=== PATIENT | male | born 1965 | race Caucasian/White ===

== ENCOUNTER 2016-08-01 08:01 | Day surgery (SDC) | payer OTHER ==
[~2016-08-01] VITALS: Ht 172.7 cm; Wt 80.7 kg
[2016-08-01] VITALS (17 sets, daily range): BP systolic 115–165; BP diastolic 58–95; PULSE 66–74; RESP 14–21; Ht 172.7 cm; Wt 80.7 kg
[2016-08-01] MEDS ORDERED: SIMV20TA PO (08:25)
[2016-08-01] MEDS ORDERED: ASPI-664 PO (08:25)
[2016-08-01] MEDS ORDERED: TRIA1CAP PO (08:26)
[2016-08-01] MEDS ORDERED: MIDAZOLAM 1 MG/ML 2 ML INJ ONE (09:47)
[2016-08-01] MEDS ORDERED: LIDOCAINE 2% (SDV) 5 ML INJ ONE (09:47)
[2016-08-01] MEDS ORDERED: SUCCINYLCHOLINE CHLORIDE 100 MG/5 ML SYG IV ONE (09:47)
[2016-08-01] MEDS ORDERED: FENTAnyl 50 MCG/ML VIAL ONE (09:47)
[2016-08-01] MEDS ORDERED: PROPOFOL 20 ML ONE (09:47)
--- NOTE | 2016-08-01 10:02 | HPN ---
Date/Time of Note Date/Time of Note DATE: 08/01/16 TIME: 10:01 Interval H&P Admission Note Pt. seen H&P reviewed: No system changes KALIN MAURICE M.D. Aug 01, 2016 10:02
[2016-08-01] MEDS ORDERED: COCAINE 4% 4 ML TOP ONE (10:34)
[2016-08-01] MEDS ORDERED: BACITRACIN/POLYMYXIN 28.35 GM OINT TOP ONE (10:34)
[2016-08-01] MEDS ORDERED: LIDOCAINE 1%/EPI (MDV) 20 ML INJ ONE ×2 (10:34→11:15)
[2016-08-01] MEDS ORDERED: ONDANSETRON 4 MG INJ ONE (11:11)
[2016-08-01] MEDS ORDERED: DEXAMETHASONE 4 MG/ML 1 ML INJ ONE (11:11)
[2016-08-01] MEDS ORDERED: CEFAZOLIN 1 GM INJ ONE (11:12)
[2016-08-01] MEDS ORDERED: MEPERIDINE 25 MG INJ IV PRN (11:30)
[2016-08-01] MEDS ORDERED: PROCHLORPERAZINE 10 MG INJ IV PRN (11:30)
[2016-08-01] MEDS ORDERED: FENTAnyl 50 MCG/ML VIAL IV PRN (11:30)
[2016-08-01] MEDS ORDERED: OXYCODONE/ACETAMINOPHEN (5/325) TAB PO PRN ×2 (11:30)
[2016-08-01] MEDS ORDERED: DIPHENHYDRAMINE 50 MG INJ IV PRN (11:30)
[2016-08-01] MEDS ORDERED: METOCLOPRAMIDE 10 MG INJ IV PRN (11:30)
[2016-08-01] MEDS ORDERED: ONDANSETRON 4 MG INJ IV PRN (11:30)
[2016-08-01] MEDS ORDERED: HYDROmorphONE (0.2 MG/ML) 10ML SYG IV PRN ×2 (11:30)
--- NOTE | 2016-08-01 11:44 | PDOCDIS ---
Discharge Instructions DIAGNOSIS Discharge Diagnosis: CHRONIC NASAL OBSTRUCTION. CONDITION Patient Condition: Good HOME CARE INSTRUCTIONS: Diet Instructions: Regular ACTIVITY: Activity Restrictions: Slowly Increase Activity Rest between Activity Avoid heavy lifting Avoid Heavy Housework Bathing Restrictions: Tub Bath FOLLOW UP/APPOINTMENTS Appointments [facility] 08-08-2016 AT 4:30 PM. SCHOOL/WORK RELEASE May return to School/Work on: Aug 09, 2016 May return to School/Work with: No Restrictions KALIN MAURICE M.D. Aug 01, 2016 11:44
--- NOTE | 2016-08-01 14:03 | OPR ---
DATE OF OPERATION: 08/01/2016 SURGEON: Marcell Clements MD PREOPERATIVE DIAGNOSES: 1. Chronic nasal obstruction. 2. Bilateral turbinate tissue hypertrophy. 3. Allergic rhinitis. POSTOPERATIVE DIAGNOSES: 1. Chronic nasal obstruction. 2. Bilateral turbinate tissue hypertrophy. 3. Allergic rhinitis. 4. 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 OPERATION PERFORMED: Bilateral laser turbinoplasty procedure using a KTP 532 nanometer laser using submucosal resection technique. ESTIMATED BLOOD LOSS: Less than 10 mL. COMPLICATIONS: None. SPECIMENS: No specimens sent to lab. ANESTHETIC USED: General anesthesia with orotracheal tube intubation using an oral CHELSI cuff-type tu be. The patient also received cocaine 4% using 4 mL topically to the nasal mucosa using cottonoids. The patient also received IV Ancef before the case was begun. The patient also received 8 mL of 1 % lidocaine with epinephrine 1:100,000 using a 25-gauge 1-06/26 needle. FINDINGS DURING PROCEDURE: Bilateral turbinate tissue hypertrophy, primarily involving the inferior turbinates bilaterally. The patient was also found to have a slight enlargement of the middle turb inates with chronic nasal obstruction. No signs of malignancies or tumors or polyps seen during the procedure. The patient did have papillomatous mucosal changes of the nasal cavity. There are also no malignancies or tumors seen during the procedure. INDICATIONS: Mr. Rebecca Khanna is a 51-year-old male who has a history of chronic nasal obstruc tion treated with topical nasal steroids which have met with failure. Because the patient has faile d medical treatment, he has been found to have bilaterally enlarged turbinates bilaterally. The [facility] is currently scheduled for today's procedure which includes bilateral laser turbinoplasty proce dures as indicated. Risks, benefits, and alternatives have been explained thoroughly to Mr. Addison rice and they include infections, bleeding as well as possible reaction to general and local anesthet ic agents used during the procedure. He has signed a consent once his questions were answered. DISPOSITION: The patient left the operating room in good and satisfactory condition to the recovery room. DESCRIPTION OF PROCEDURE: The patient was taken to the operating room, placed on the surgical tabl e in supine position, made comfortable by the anesthesiologist, Dr. Moreno. The patient had EKG, satur ation monitoring and blood pressure cuff applied. At this point, the patient was given an injection through a previously started IV in the preinduction area which was infusing well. At this point, t he air was then maintained and controlled as the patient was given inhalation agents as well. The p atient was then successfully orotracheally intubated with orotracheal CHELSI type tube with a cuff with out any complications. The tube was taped to the lower lip in the midline as the eyes were taped fo r protection. At this point, the patient's vital signs were noted to be stable as a brief time-out with patient identification and procedures entertained, and all were in agreement. At this point, the patient had injections of 1% lidocaine with epinephrine 1:100,000 to the inferior turbinates usi ng a 25-gauge needle. Cottonoids were then soaked with cocaine 4% and applied to the anterior ethmoid as well as behind the middle turbinate areas. At this point, the patient was then draped i n usual sterile fashion using split sheets and wet towels around the face and nose area in preparati on for laser use. At this point, all personnel in the operating room were asked to place safety gog gles on for their protection. At this point, the cottonoids were then removed from the nasal cavity . A straight hand-held handpiece with suction attachment with a laser fiber threaded through was th en made ready at 8 diaz continuous power. With use of a foot pedal activation the left inferior tu rbinate was brought under direct visualization. At this point, using a stabbing technique in a post erior direction, the inferior turbinate submucosal space was vaporized using the laser. The smoke w as evacuated through the smoke evacuator as the inferior turbinate on the left side was noted to shr ink in size. With the use of a nasal speculum, the inferior turbinate was outfractured towards the medial wall of the maxillary sinus, to give even greater patency of the nasal cavity. After two thi rds of the inferior turbinates were vaporized in the submucosal space, the right turbinate was done in a similar fashion. It too had papillomatous degenerative mucosal changes in the turbinate. A m inimal amount of bleeding was then removed with a Sanchez suction as the nasal cavity was noted to be more patent bilaterally. At this point, bacitracin ointment was then used as a packing to pack b oth the left and right side of the nose as a mustache dressing was applied beneath the nose to catch any drainage. This ended the procedure. Sponge count and instrument count correct x3. There were no complications during the procedure. The patient was extubated in the operating room and taken t o the recovery room and expected to be discharged home unless postoperative complications develop. Dictated By: MARCELL HANSEN/LUCIO Conf#: [id number] DID#: [id number]
== END 2016-08-01 13:40 | disposition home or self-care (01) ==
LOC: SDS 08:01 → EDSEX 12:00 → SDS 13:40
PROVIDERS: ATTEND Otolaryngology Otolaryngology/Facial Plastic Surgery
DX: J34.3 Hypertrophy of nasal turbinates (principal); J30.9 Allergic rhinitis, unspecified; I10 Essential (primary) hypertension; E78.5 Hyperlipidemia, unspecified
CPT/HCPCS: 30140; J0330; J0690; J1100; J2250; J2405; J3010; Z7512; Z7610